=== PATIENT | female | born 1945 | race Caucasian/White ===

== ENCOUNTER 2020-08-22 07:52 | Day surgery (SDC) | payer MEDICARE, OTHER ==
[~2020-08-22] VITALS: Ht 165.1 cm; Wt 63.0 kg
[~2020-08-22 07:52] MED LIST: COZAAR100 MG PO; NORVASC5 MG PO
[2020-08-22 08:28] LABS: ANION GAP 9.8 mmol/L (8-16); CALCIUM 9.5 mg/dL (8.5-10.1); CARBON DIOXIDE 29.1 mmol/L (21.0-32.0); CREATININE - SERUM 0.8 mg/dL (0.6-1.3); POTASSIUM - SERUM 3.9 mmol/L (3.5-5.1)
[2020-08-22 08:36] LABS: BASOPHILS 0.8 % (0-2); HEMATOCRIT 39.6 % (36.0-48.0); HEMOGLOBIN 13.3 g/dL (12-16); IMMATURE GRANULOCYTES 0.2 % (0-5); LYMPHOCYTES 28.2 % (15-50); MCHC 33.6 g/dL (31.0-37.0); MCV 89.2 fL (80.0-100.0); MEAN PLATELET VOLUME 9.4 fL (7.4-10.4); MONOCYTES 8.5 % (2-11); NEUTROPHIL ABS# 3.52 10x3/uL (1.56-6.13); NEUTROPHILS 58.3 % (40-80); PLATELET COUNT 360 10x3/uL (130-400); RBC 4.44 10x6/uL (4.00-5.40)
[2020-08-22] MEDS ORDERED: VITAMIN B COMPLEX (09:48)
[2020-08-22] MEDS ORDERED: SALMON OIL (09:49)
[2020-08-22] MEDS ORDERED: VITAMIN C WIT1000 MG (09:49)
[2020-08-22] MEDS ORDERED: VITAMIN D325 MC1 (09:49)
[2020-08-22] MEDS ORDERED: CALCIUM 500 +1 EAC3 (09:50)
[2020-08-22] MEDS ORDERED: LUTEIN20 MG PO (09:50)
[2020-08-22] MEDS ORDERED: GARLIC (09:51)
[2020-08-22 10:05] VITALS: BP 145/80; Ht 165.1 cm; Wt 63.0 kg
[2020-08-22] MEDS ORDERED: HYDROCODON-ACE1 EA10 PO (12:10)
--- NOTE | 2020-08-22 13:34 | NUR ---
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 C/O JAW PAIN AND RIGHT ARM PAIN.
--- NOTE | 2020-08-22 17:20 | NUR ---
1315 DR ISSA HERE TO SEE PT ORDERS GIVEN. 1400 PT PAIN EASING AND VOIDED IN BATHROOM LARGE AMT. 1430 IV REMOVED AND INSTRUCTIONS GIVEN.
--- NOTE | 2020-08-26 12:40 | OP ---
PATIENT NAME: CORIN ANDUJAR MEDICAL RECORD: [id number] :43 LOCATION:D.OPS ADMISSION DATE: SURGEON: HERMES HALEY MD DATE OF OPERATION: 08/22/2020 PREOPERATIVE DIAGNOSES: 1. Right inguinal hernia. 2. Hypertension. 3. Hypercholesterolemia. POSTOPERATIVE DIAGNOSES: 1. Right inguinal hernia. 2. Hypertension. 3. Hypercholesterolemia. PROCEDURE: Right inguinal hernia repair with medium PHS mesh. SURGEON: Hermes Haley MD REPORT OF PROCEDURE: The patient's right groin was prepped and draped in sterile fashion. An oblique incision was made above the inguinal ligament and electrocautery was used to dissect through the subcutaneous tissues to the external oblique fascia. This fascia was opened up to the external ring. Using electrocautery, we elevated the round ligament and this was ligated distally with 3-0 silk. As we dissected the proximal aspect going into the internal ring, we could see there was a small hernia sac present. We took down some of the muscular fibers and the surrounding fatty tissue and eventually elevated this hernia sac enough to where we could see there were no contents present within it. We went ahead and clamped across the base of the hernia sac using a hemostat and ligated the tissue. We then tied off the hernia sac using a 3-0 silk tie. I then inspected the inguinal floor and saw no evidence of any further herniations. The patient did have some nerve tissue, which was high ligated. I opened up the internal ring a little bit wider and was able to open up the preperitoneal space of Retzius. Once this was opened then I inserted the medium PHS mesh in an underlay fashion and then flayed out the top portion of the mesh over the inguinal floor and this was sutured down on all 4 sides using multiple interrupted 0 Vicryls. The wound was then irrigated out with normal saline. The external oblique fascia was closed with running 2-0 Vicryl. Johan's was closed with interrupted 3-0 Vicryl and the skin was closed with running subcutaneous 5-0 Monocryl. COMPLICATIONS: None. CONDITION: Stable. ANESTHESIA: General endotracheal and local. BLOOD LOSS: Minimal. TRANSINT:[id number] Voice Confirmation ID: [id number] DOCUMENT ID: [id number] OPERATIVE REPORT [id number] ANDUJARCORIN HERMES HALEY MD at 1240 CC: COLLIN GRAY [id number] DICTATION DATE: 08/22/[address] JUDGE: 08/22/20 1550 [facility] 08/22/20 [place] [id number] [facility] [place] [id number]
== END 2020-08-22 15:00 | disposition home or self-care (01) ==
LOC: D.OPS 07:52
PROVIDERS: ATTEND Surgery
DX: K40.90 Unilateral inguinal hernia, without obstruction or gangrene, not specified as recurrent (principal); I10 Essential (primary) hypertension; E78.00 Pure hypercholesterolemia, unspecified